=== PATIENT | male | born 1940 | race Caucasian/White ===

== ENCOUNTER → 2017-09-21 | Outpatient (CLI) | payer OTHER | LOC: FIMAGING 10:17 | PROVIDERS: ATTEND Internal Medicine | DX: M79.2 Neuralgia and neuritis, unspecified (principal); R20.0 Anesthesia of skin; R20.2 Paresthesia of skin; Q76.1 Klippel-Feil syndrome; Q76.49 Other congenital malformations of spine, not associated with scoliosis; G95.0 Syringomyelia and syringobulbia ==

== ENCOUNTER → 2018-12-29 | Outpatient (CLI) | payer OTHER ==
[~2018-12-29] MED LIST: fentaNYL 100 MCG/2 ML INJ ONE
== END ==
LOC: FIMAGING 07:18
PROVIDERS: ATTEND Physician Assistant
DX: M25.561 Pain in right knee (principal); M23.221 Derangement of posterior horn of medial meniscus due to old tear or injury, right knee; M23.251 Derangement of posterior horn of lateral meniscus due to old tear or injury, right knee; M25.461 Effusion, right knee; M24.10 Other articular cartilage disorders, unspecified site
CPT/HCPCS: 73721; J3010